=== PATIENT | male | born 1965 ===

== ENCOUNTER 2016-08-26 13:33 | Day surgery (SDC) | payer MEDICAID ==
[2016-08-26] MEDS ORDERED: MIDAZOLAM HCL 2MG/2ML VIAL IV ONE (14:00)
[2016-08-26] MEDS ORDERED: PROPOFOL 10 MG/ML VIAL IV ONE (14:00)
[2016-08-26] MEDS ORDERED: LIDOCAINE 2% MDV (20MG/ML) 20ML VIAL IV ONE (14:00)
--- NOTE | 2016-08-30 09:46 | Operative Note ---
DATE OF SURGERY: 08/26/2016 OPERATION: COLONOSCOPY. PREOPERATIVE DIAGNOSIS: Left lower quadrant pain, history of diverticulitis. POSTOPERATIVE DIAGNOSIS: Colonic diverticulosis, left side greater than right. Otherwise normal exam. PREPARATION QUALITY: Fair to good. SPECIMENS: None. COMPLICATIONS: None apparent. PROCEDURE: After informed consent was obtained from the patient, he was placed in the left lateral decubitus position in the endoscopy suite, sedated and monitored by the department of anesthesia. Digital rectal exam was unremarkable. A well-lubricated [id number] colonoscope was inserted into the rectum and advanced to the cecum. Preparation quality was fair to good. The cecum, terminal ileum, ascending colon, transverse colon, descending colon, sigmoid colon, and rectum were inspected. There were no polyps, mass lesions, or inflammation identified. There were a few diverticula in the right colon but most notably there was a moderate amount of diverticular changes in the sigmoid colon. Forward and J-turn views of the rectum and anorectum were unrevealing. The endoscope was straightened, the rectal ampulla deflated, and the endoscope was removed. RECOMMENDATIONS: I would suggest the patient use a fiber supplement daily such as Citrucel or Benefiber. If he has issues with regularity despite this, I would add MiraLax. He can consider the use of a probiotic. If he has recurrent bouts of left lower quadrant pain despite regularity, perhaps a trial of an antispasmodic such as Robinul 1 mg 2-3 times per day would be worthwhile. I would recommend a repeat colonoscopy given the good to fair quality of the prep. As always, thank you for allowing me to participate in the healthcare of your patients. CC: Ewa MCMULLEN
== END 2016-08-26 14:40 | disposition home or self-care (01) ==
LOC: HOP 13:33
PROVIDERS: ATTEND Internal Medicine Gastroenterology
DX: K57.30 Diverticulosis of large intestine without perforation or abscess without bleeding (principal); I10 Essential (primary) hypertension; E11.9 Type 2 diabetes mellitus without complications; Z79.84 Long term (current) use of oral hypoglycemic drugs